=== PATIENT | male | born 1970 | race African-American/Black ===

== ENCOUNTER 2024-01-07 10:28 | Inpatient (IN) | payer OTHER ==
[2024-01-07 11:06] VITALS: BMI 27.1
[2024-01-07] MEDS ORDERED: NICOTINE POLACRILEX 2 MG GUM BUC PRN (11:32)
[2024-01-07] MEDS ORDERED: MAGNESIUM HYDROX 2400MG/30ML ORAL SUSPENSION 30 ML CUP PO PRN (11:32)
[2024-01-07] MEDS ORDERED: MAG HYDROX/AL HYDROX/SIMETH 30 ML UNIT-DOSE CUP PO PRN (11:32)
[2024-01-07] MEDS ORDERED: diazePAM 5 MG TABLET PO PRN (11:32)
[2024-01-07] MEDS ORDERED: NALOXONE (NYS OPIOID OVERDOSE PROGRAM) 4 MG/0.1 ML SPRAY NS PRN (11:32)
[2024-01-07] MEDS ORDERED: ONDANSETRON *ODT* 4 MG TABLET SL PRN (11:32)
[2024-01-07] MEDS ORDERED: hydrOXYzine PAMOATE 25 MG CAPSULE (FP) PO PRN (11:32)
[2024-01-07] MEDS ORDERED: IBUPROFEN 400 MG TABLET (FP) PO PRN (11:32)
[2024-01-07] MEDS ORDERED: METHOCARBAMOL 500 MG TABLET PO PRN (11:32)
[2024-01-07] MEDS ORDERED: ACETAMINOPHEN 325 MG TABLET (FP) PO PRN (11:32)
[2024-01-07] MEDS ORDERED: LOPERAMIDE HCL 2 MG CAPSULE PO PRN (11:32)
[2024-01-07] MEDS ORDERED: DICYCLOMINE HCL 10 MG CAPSULE PO PRN (11:32)
[2024-01-07] MEDS ORDERED: guaiFENesin 600 MG TABLET.ER (FP) PO PRN (11:32)
[2024-01-07] MEDS ORDERED: IBUPROFEN 600 MG TABLET (FP) PO PRN (11:32)
[2024-01-07] MEDS ORDERED: BENZOCAINE/MENTHOL (CHLORASEPTIC ) LOZENGE MM PRN (11:32)
[2024-01-07] MEDS ORDERED: BISMUTH SUBSALICYLATE 524 MG/30 ML PO PRN (11:32)
[2024-01-07] MEDS ORDERED: BENZONATATE 200 MG CAPSULE PO PRN (11:32)
[2024-01-07] MEDS ORDERED: NALOXONE (NARCAN) HCL 4 MG/0.1 ML SPRAY NS PRN (11:32)
[2024-01-07] MEDS ORDERED: POLYETHYLENE GLYCOL (HEALTHYLAX) 3350 17 GM PACKET PO PRN (11:32)
[2024-01-07] MEDS ORDERED: PRENATAL VITAMINS W/ FOLIC ACID TABLET (FP) PO ONE (12:10)
[2024-01-07] MEDS: PRENATAL VITAMINS W/ FOLIC ACID TABLET (FP) PO SCH (12:14)
[2024-01-07] MEDS ORDERED: PATIENT'S OWN MEDICATION (NON-FORMULARY) (Insulin Glargine,Hum.Rec.Anlog [Basaglar Kwikpen SQ PRN (16:16)
[2024-01-07] MEDS ORDERED: INSULIN ASPART SLIDING SCALE (NOVOLOG) 1 VIAL SQ SCH (16:30)
[2024-01-07] MEDS: INSULIN ASPART SLIDING SCALE (NOVOLOG) 1 VIAL SQ SCH (16:48)
[2024-01-07] MEDS: metFORMIN HCL 500 MG TABLET (FP) PO SCH (17:24)
[2024-01-07] MEDS: diazePAM 5 MG TABLET PO SCH (17:45)
[2024-01-07 19:20] LABS: HIV INTERPRETATION NEGATIVE (NEGATIVE)
[2024-01-07] MEDS: MELATONIN 5 MG TABLETS PO SCH (22:20)
[2024-01-07] MEDS: THIAMINE 100 MG TABLET PO SCH (22:20)
[2024-01-07] MEDS: ATORVASTATIN CA 40 MG TABLET (FP) PO SCH (22:21)
[2024-01-08] MEDS: TAMSULOSIN HCL 0.4 MG CAP PO SCH (08:46)
[2024-01-08] MEDS ORDERED: valACYclovir HCL 500 MG TABLET (FP) PO PRN (10:00)
[2024-01-08 12:01] LABS: HEMATOCRIT 36.9 % (35.4-49); HEMOGLOBIN 12.6 GM/dL (11.7-16.9); MCH 27.5 pg (25.7-33.7); MCHC 34.2 g/dl (32.0-35.9); MEAN CELL VOLUME 80.3 fl (80-96); MEAN PLT VOLUME 9.3 fl (7.5-11.1); PLATELET COUNT 136 10^3/uL (134-434); RDW 12.9 % (11.9-15.9); WHITE BLOOD COUNT 3.9 K/mm3 (4.0-10.0)
[2024-01-08 12:04] LABS: POTASSIUM 4.1 mmol/L (3.5-5.1)
[2024-01-08 12:14] LABS: BLOOD UREA NITROGEN 18.5 mg/dL (7-18); CALCIUM 8.7 mg/dL (8.5-10.1); TOT PROT 5.8 g/dl (6.4-8.2)
[2024-01-08 12:15] LABS: ALBUMIN 3.1 g/dl (3.4-5.0)
[2024-01-08 12:19] LABS: BILIRUBIN,TOTAL 0.4 mg/dL (0.2-1)
[2024-01-09] MEDS: diazePAM 5 MG TABLET PO SCH (06:11)
[2024-01-10] MEDS: diazePAM 5 MG TABLET PO SCH (06:34)
[2024-01-10 06:35] VITALS: PULSE 60
[2024-01-11] MEDS: diazePAM 5 MG TABLET PO ONE (05:32)
[2024-01-11 06:16] VITALS: BP 95/65; RESP 17; TEMP 98
== END 2024-01-11 09:16 | disposition other institution (70) | DRG 774 ==
LOC: YASAS 10:28 → Y3N 12:14
PROVIDERS: ADMIT Allergy & Immunology; ATTEND Surgery
PROC: HZ2ZZZZ Detoxification Services for Substance Abuse Treatment (ICD-10-PCS; principal; 2024-01-07)
DX: F10.230 Alcohol dependence with withdrawal, uncomplicated (principal); F14.20 Cocaine dependence, uncomplicated; F12.20 Cannabis dependence, uncomplicated; F17.210 Nicotine dependence, cigarettes, uncomplicated; I10 Essential (primary) hypertension; E78.5 Hyperlipidemia, unspecified; E11.9 Type 2 diabetes mellitus without complications; Z79.84 Long term (current) use of oral hypoglycemic drugs; A60.02 Herpesviral infection of other male genital organs
CPT/HCPCS: 36415; 80053; 80305; 80307; 82962; 85027; 86780; 87389; 93005; 93010

== ENCOUNTER 2024-01-14 17:28 | Inpatient (IN) | payer OTHER ==
[2024-01-14 19:17] VITALS: BMI 28.8
[2024-01-14] MEDS ORDERED: NALOXONE HCL 0.4 MG/ML VIAL IVPUSH PRN (20:42)
[2024-01-14] MEDS ORDERED: NALOXONE (NARCAN) HCL 4 MG/0.1 ML SPRAY NS PRN (20:42)
[2024-01-14] MEDS ORDERED: MAG HYDROX/AL HYDROX/SIMETH 30 ML UNIT-DOSE CUP PO PRN (20:42)
[2024-01-14] MEDS ORDERED: NICOTINE POLACRILEX 4 MG GUM BUC PRN (20:42)
[2024-01-14] MEDS ORDERED: IBUPROFEN 600 MG TABLET (FP) PO PRN (20:42)
[2024-01-14] MEDS ORDERED: BENZOCAINE/MENTHOL (CHLORASEPTIC ) LOZENGE MM PRN (20:42)
[2024-01-14] MEDS ORDERED: guaiFENesin 600 MG TABLET.ER (FP) PO PRN (20:42)
[2024-01-14] MEDS ORDERED: ACETAMINOPHEN 325 MG TABLET (FP) PO PRN (20:42)
[2024-01-14] MEDS ORDERED: BENZONATATE 200 MG CAPSULE PO PRN (20:42)
[2024-01-14] MEDS ORDERED: IBUPROFEN 400 MG TABLET (FP) PO PRN (20:42)
[2024-01-14] MEDS ORDERED: POLYETHYLENE GLYCOL (HEALTHYLAX) 3350 17 GM PACKET PO PRN (20:42)
[2024-01-14] MEDS ORDERED: hydrOXYzine PAMOATE 25 MG CAPSULE (FP) PO PRN (20:42)
[2024-01-14] MEDS ORDERED: LOPERAMIDE HCL 2 MG CAPSULE PO PRN (20:42)
[2024-01-14] MEDS ORDERED: METHOCARBAMOL 500 MG TABLET PO PRN (20:42)
[2024-01-14] MEDS ORDERED: MAGNESIUM HYDROX 2400MG/30ML ORAL SUSPENSION 30 ML CUP PO PRN (20:42)
[2024-01-14] MEDS: MELATONIN 5 MG TABLETS PO SCH (22:32)
[2024-01-14] MEDS: INSULIN (LEVEMIR) 100 UNITS/ML UNITS SQ SCH (22:32)
[2024-01-14] MEDS: ATORVASTATIN CA 40 MG TABLET (FP) PO SCH (22:33)
[2024-01-14] MEDS: TAMSULOSIN HCL 0.4 MG CAP PO SCH (22:33)
[2024-01-14] MEDS: THIAMINE 100 MG TABLET PO SCH (22:33)
[2024-01-15] MEDS: metFORMIN HCL 500 MG TABLET (FP) PO SCH (06:49)
[2024-01-15] MEDS: NICOTINE 14 MG/24 HOURS TOPICAL PATCH TD SCH (11:04)
[2024-01-15] MEDS: PRENATAL VITAMINS W/ FOLIC ACID TABLET (FP) PO SCH (11:05)
[2024-01-28] MEDS ORDERED: INSULIN (NOVOLOG) ASPART 100 UNITS/ML 10ML VIAL ONE (06:18)
[2024-01-28 06:59] VITALS: BP 113/74; PULSE 63; RESP 18; TEMP 97.4
== END 2024-01-28 09:03 | disposition home or self-care (01) | DRG 772 ==
LOC: YASAS 17:28 → Y3NR 21:19 → Y5N 01-19 12:01
PROVIDERS: ADMIT Allergy & Immunology; ATTEND Psychiatry & Neurology Pain Medicine
PROC: HZ42ZZZ Group Counseling for Substance Abuse Treatment, Cognitive-Behavioral (ICD-10-PCS; principal; 2024-01-14)
DX: F10.20 Alcohol dependence, uncomplicated (principal); F14.20 Cocaine dependence, uncomplicated; F12.20 Cannabis dependence, uncomplicated; F17.210 Nicotine dependence, cigarettes, uncomplicated; E11.69 Type 2 diabetes mellitus with other specified complication; E78.49 Other hyperlipidemia; Z79.4 Long term (current) use of insulin; Z79.84 Long term (current) use of oral hypoglycemic drugs; N40.0 Benign prostatic hyperplasia without lower urinary tract symptoms; Z86.19 Personal history of other infectious and parasitic diseases
CPT/HCPCS: 36415; 80305; 80307; 82962; 86803; 87811

== ENCOUNTER 2024-03-26 08:27 | Inpatient (IN) | payer OTHER ==
[2024-03-26 08:57] VITALS: BMI 27.7
[2024-03-26] MEDS ORDERED: LOPERAMIDE HCL 2 MG CAPSULE PO PRN (09:43)
[2024-03-26] MEDS ORDERED: BENZONATATE 200 MG CAPSULE PO PRN (09:43)
[2024-03-26] MEDS ORDERED: POLYETHYLENE GLYCOL (HEALTHYLAX) 3350 17 GM PACKET PO PRN (09:43)
[2024-03-26] MEDS ORDERED: MAGNESIUM HYDROX 2400MG/30ML ORAL SUSPENSION 30 ML CUP PO PRN (09:43)
[2024-03-26] MEDS ORDERED: IBUPROFEN 400 MG TABLET (FP) PO PRN (09:43)
[2024-03-26] MEDS ORDERED: ACETAMINOPHEN 325 MG TABLET (FP) PO PRN (09:43)
[2024-03-26] MEDS ORDERED: NALOXONE (NARCAN) HCL 4 MG/0.1 ML SPRAY NS PRN (09:43)
[2024-03-26] MEDS ORDERED: IBUPROFEN 600 MG TABLET (FP) PO PRN (09:43)
[2024-03-26] MEDS ORDERED: MAG HYDROX/AL HYDROX/SIMETH 30 ML UNIT-DOSE CUP PO PRN (09:43)
[2024-03-26] MEDS ORDERED: BENZOCAINE/MENTHOL (CHLORASEPTIC ) LOZENGE MM PRN (09:43)
[2024-03-26] MEDS ORDERED: PRENATAL VITAMINS W/ FOLIC ACID TABLET (FP) PO ONE (10:00)
[2024-03-26] MEDS: PRENATAL VITAMINS W/ FOLIC ACID TABLET (FP) PO SCH (10:07)
[2024-03-26] MEDS: metFORMIN HCL 500 MG TABLET (FP) PO SCH (16:25)
[2024-03-26 16:27] LABS: PH,URINE 5.5 (5.0-8.0); URINE APPEARANCE CLEAR; URINE BILIRUBIN NEGATIVE (NEGATIVE); URINE COLOR YELLOW; URINE GLUCOSE (UA) NEGATIVE (NEGATIVE); URINE KETONE TRACE (NEGATIVE); URINE LEUK ESTERASE NEGATIVE (NEGATIVE); URINE NITRITE NEGATIVE (NEGATIVE); URINE PROTEIN TRACE (NEGATIVE); URINE UROBILINOGEN 0.2 mg/dL (0.2-1.0)
[2024-03-26] MEDS: THIAMINE 100 MG TABLET PO SCH (21:10)
[2024-03-26] MEDS: TAMSULOSIN HCL 0.4 MG CAP PO SCH (21:10)
[2024-03-26] MEDS: hydrOXYzine PAMOATE 25 MG CAPSULE (FP) PO PRN (21:11)
[2024-03-26] MEDS: ATORVASTATIN CA 40 MG TABLET (FP) PO SCH (21:11)
[2024-03-26] MEDS: MELATONIN 5 MG TABLETS PO SCH (22:52)
[2024-03-27 09:11] LABS: POTASSIUM 3.9 mmol/L (3.5-5.1)
[2024-03-27 09:13] LABS: CALCIUM 9.1 mg/dL (8.5-10.1)
[2024-03-27 09:14] LABS: ALBUMIN 3.4 g/dl (3.4-5.0); BLOOD UREA NITROGEN 13.1 mg/dL (7-18)
[2024-03-27 09:17] LABS: CREATININE 1.1 mg/dL (0.55-1.3)
[2024-03-27 09:19] LABS: BILIRUBIN,TOTAL 0.5 mg/dL (0.2-1); TOT PROT 6.4 g/dl (6.4-8.2)
[2024-03-27 09:21] LABS: HEMATOCRIT 36.9 % (35.4-49); HEMOGLOBIN 12.3 GM/dL (11.7-16.9); MCHC 33.4 g/dl (32.0-35.9); PLATELET COUNT 161 10^3/uL (134-434); RBC 4.56 M/mm3 (4.00-5.60); RDW 13.2 % (11.9-15.9); WHITE BLOOD COUNT 5.1 K/mm3 (4.0-10.0)
[2024-03-27] MEDS: PRENATAL VITAMINS W/ FOLIC ACID TABLET (FP) PO SCH (09:32)
[2024-03-27] MEDS: guaiFENesin 600 MG TABLET.ER (FP) PO PRN (21:08)
[2024-03-27] MEDS: risperiDONE 1 MG TABLET PO SCH (21:08)
[2024-03-30 07:01] VITALS: RESP 16
[2024-04-01 06:51] VITALS: BP 105/61; PULSE 55; TEMP 97.4
[2024-04-01] MEDS ORDERED: NALOXONE (NYS OPIOID OVERDOSE PROGRAM) 4 MG/0.1 ML SPRAY NS SCH (14:15)
== END 2024-04-01 14:05 | disposition left against medical advice (07) | DRG 770 ==
LOC: YASAS 08:27 → Y3NR 10:49 → Y3E 03-28 09:42 → Y5N 03-29 17:45
PROVIDERS: ADMIT Allergy & Immunology; ATTEND Psychiatry & Neurology Pain Medicine
PROC: HZ40ZZZ Group Counseling for Substance Abuse Treatment, Cognitive (ICD-10-PCS; principal; 2024-03-26)
DX: F14.20 Cocaine dependence, uncomplicated (principal); F10.20 Alcohol dependence, uncomplicated; F17.210 Nicotine dependence, cigarettes, uncomplicated; F19.24 Other psychoactive substance dependence with psychoactive substance-induced mood disorder; I10 Essential (primary) hypertension; E78.5 Hyperlipidemia, unspecified; E11.69 Type 2 diabetes mellitus with other specified complication; Z79.84 Long term (current) use of oral hypoglycemic drugs; N40.0 Benign prostatic hyperplasia without lower urinary tract symptoms; A60.02 Herpesviral infection of other male genital organs; Z86.19 Personal history of other infectious and parasitic diseases
CPT/HCPCS: 36415; 80053; 80305; 80307; 81003; 82962; 85027; 86780; 87811; 93005; 93010

== ENCOUNTER 2024-06-03 13:42 | Inpatient (IN) | payer OTHER ==
[2024-06-03 13:56] VITALS: BMI 26.6
[2024-06-03] MEDS ORDERED: NALOXONE (NARCAN) HCL 4 MG/0.1 ML SPRAY NS PRN (14:31)
[2024-06-03] MEDS ORDERED: MAG HYDROX/AL HYDROX/SIMETH 30 ML UNIT-DOSE CUP PO PRN (14:31)
[2024-06-03] MEDS ORDERED: BENZONATATE 200 MG CAPSULE PO PRN (14:31)
[2024-06-03] MEDS ORDERED: LOPERAMIDE HCL 2 MG CAPSULE PO PRN (14:31)
[2024-06-03] MEDS ORDERED: ACETAMINOPHEN 325 MG TABLET (FP) PO PRN (14:31)
[2024-06-03] MEDS ORDERED: IBUPROFEN 600 MG TABLET (FP) PO PRN (14:31)
[2024-06-03] MEDS ORDERED: MAGNESIUM HYDROX 2400MG/30ML ORAL SUSPENSION 30 ML CUP PO PRN (14:31)
[2024-06-03] MEDS ORDERED: POLYETHYLENE GLYCOL (HEALTHYLAX) 3350 17 GM PACKET PO PRN (14:31)
[2024-06-03] MEDS ORDERED: guaiFENesin 600 MG TABLET.ER (FP) PO PRN (14:31)
[2024-06-03] MEDS ORDERED: IBUPROFEN 400 MG TABLET (FP) PO PRN (14:31)
[2024-06-03] MEDS: metFORMIN HCL 500 MG TABLET (FP) PO SCH (17:02)
[2024-06-03] MEDS: MELATONIN 5 MG TABLETS PO SCH (21:35)
[2024-06-03] MEDS: ATORVASTATIN CA 40 MG TABLET (FP) PO SCH (21:35)
[2024-06-03] MEDS: THIAMINE 100 MG TABLET PO SCH (21:35)
[2024-06-03] MEDS: TAMSULOSIN HCL 0.4 MG CAP PO SCH (21:36)
[2024-06-03] MEDS: hydrOXYzine PAMOATE 25 MG CAPSULE (FP) PO PRN (21:36)
[2024-06-04 01:16] LABS: URINE APPEARANCE CLEAR; URINE BILIRUBIN NEGATIVE (NEGATIVE); URINE COLOR YELLOW; URINE GLUCOSE (UA) NEGATIVE (NEGATIVE); URINE KETONE NEGATIVE (NEGATIVE); URINE LEUK ESTERASE NEGATIVE (NEGATIVE); URINE NITRITE NEGATIVE (NEGATIVE); URINE PROTEIN NEGATIVE (NEGATIVE)
[2024-06-04] MEDS: PRENATAL VITAMINS W/ FOLIC ACID TABLET (FP) PO SCH (10:21)
[2024-06-04] MEDS: risperiDONE 1 MG TABLET PO SCH (10:21)
[2024-06-04 11:08] LABS: HEMATOCRIT 35.6 % (35.4-49); HEMOGLOBIN 12.3 GM/dL (11.7-16.9); MCH 26.9 pg (25.7-33.7); MCHC 34.5 g/dl (32.0-35.9); MEAN CELL VOLUME 78.2 fl (80-96); MEAN PLT VOLUME 8.8 fl (7.5-11.1); PLATELET COUNT 190 10^3/uL (134-434); RBC 4.55 M/mm3 (4.00-5.60); RDW 12.5 % (11.9-15.9); WHITE BLOOD COUNT 4.6 K/mm3 (4.0-10.0)
[2024-06-04 11:23] LABS: CHLORIDE 107 mmol/L (98-107); POTASSIUM 3.9 mmol/L (3.5-5.1); SODIUM 139 mmol/L (136-145)
[2024-06-04 11:35] LABS: ALBUMIN 3.2 g/dl (3.4-5.0); ANION GAP 4 mmol/L (4-13); CALCIUM 8.7 mg/dL (8.5-10.1); CO2 28 mmol/L (21-32); GLUCOSE,RANDOM 121 mg/dL (74-106)
[2024-06-04 11:36] LABS: BLOOD UREA NITROGEN 13.3 mg/dL (7-18)
[2024-06-04 11:38] LABS: CREATININE 0.9 mg/dL (0.55-1.3); SGOT/AST 11 U/L (15-37); SGPT/ALT 18 U/L (13-61)
[2024-06-04 11:40] LABS: BILIRUBIN,TOTAL 0.6 mg/dL (0.2-1); TOT PROT 6.1 g/dl (6.4-8.2)
[2024-06-04 11:41] LABS: ALK PHOS 68 U/L (45-117)
[2024-06-04 14:42] LABS: SYPHILIS W/ RPR CONF NON-REACTIVE (NONREACTIVE)
[2024-06-08] MEDS: risperiDONE 2 MG TABLET PO SCH (21:27)
[2024-06-09] MEDS: risperiDONE 1 MG TABLET PO SCH (09:56)
[2024-06-11] MEDS: risperiDONE 1 MG TABLET PO SCH (21:37)
[2024-06-14] MEDS: NICOTINE POLACRILEX 2 MG GUM BUC PRN (09:57)
[2024-06-14] MEDS: risperiDONE 3 MG TABLET PO SCH (21:34)
[2024-06-15] MEDS ORDERED: NICOTINE POLACRILEX 4 MG GUM BUC PRN (14:07)
[2024-06-17 07:03] VITALS: TEMP 97.6
[2024-06-17] MEDS: BENZOCAINE/MENTHOL (CHLORASEPTIC ) LOZENGE MM PRN (14:22)
[2024-06-18 07:04] VITALS: RESP 16
[2024-06-18 09:15] VITALS: BP 107/65; PULSE 88
== END 2024-06-18 09:30 | disposition home or self-care (01) | DRG 772 ==
LOC: YASAS 13:42 → Y5N 16:17
PROVIDERS: ADMIT Psychiatry & Neurology Pain Medicine; ATTEND Psychiatry & Neurology Pain Medicine
PROC: HZ42ZZZ Group Counseling for Substance Abuse Treatment, Cognitive-Behavioral (ICD-10-PCS; principal; 2024-06-03)
DX: F10.20 Alcohol dependence, uncomplicated (principal); F14.20 Cocaine dependence, uncomplicated; F17.210 Nicotine dependence, cigarettes, uncomplicated; F19.259 Other psychoactive substance dependence with psychoactive substance-induced psychotic disorder, unspecified; F19.24 Other psychoactive substance dependence with psychoactive substance-induced mood disorder; E11.59 Type 2 diabetes mellitus with other circulatory complications; E11.69 Type 2 diabetes mellitus with other specified complication; Z79.84 Long term (current) use of oral hypoglycemic drugs; N40.0 Benign prostatic hyperplasia without lower urinary tract symptoms; Z86.19 Personal history of other infectious and parasitic diseases
CPT/HCPCS: 36415; 80053; 80305; 80307; 81003; 82962; 85027; 86780; 86803; 87811; 93005; 93010